=== PATIENT | male | born 1955 | race Caucasian/White ===

== ENCOUNTER 2017-01-21 20:11 | Emergency (ER) | payer MEDICAID ==
[~2017-01-21] VITALS: Ht 172.7 cm; Wt 98.0 kg
[2017-01-21] MEDS ORDERED: SODIUM CHLORIDE 0.9% 1,000 ML IV ONE (22:58)
[2017-01-21 23:13] LABS: BASOPHILS % 0.6 % (0.0-2.0); EOSINOPHILS % 5.8 % (0.0-5.0); HEMATOCRIT. 42.9 % (42.0-52.0); HEMOGLOBIN. 14.9 g/dL (14.0-18.0); LYMPHOCYTES % 37.4 % (20.0-50.0); MEAN CORPUSCULAR HEMOGLOBIN 30.3 pg (28.0-32.0); MEAN CORPUSCULAR VOLUME 87.1 fL (80.0-94.0); MEAN PLATELET VOLUME 8.7 fl (7.4-10.4); MONOCYTES % 5.6 % (2.0-8.0); NEUTROPHILS % 50.6 % (40.0-76.0); PLATELET 270 x1000/uL (130-400); RED BLOOD CELL COUNT 4.92 mill/uL (4.7-6.1); RED CELL DISTRIBUTION WIDTH 13.8 % (11.6-14.6)
[2017-01-21 23:18] LABS: CHLORIDE 106 mEq/L (98-107)
[2017-01-21 23:23] LABS: CARBON DIOXIDE 22 mEq/L (21-32)
[2017-01-21 23:39] LABS: CLARITY URINE CLEAR (CLEAR); COLOR URINE YELLOW (YELLOW); GLUCOSE URINE NEGATIVE (NEGATIVE); KETONES URINE 1+ (NEGATIVE); LEUKOCYTE ESTERASE URINE NEGATIVE (NEGATIVE); NITRITE URINE NEGATIVE (NEGATIVE); OCCULT BLOOD URINE NEGATIVE (NEGATIVE); PH URINE 5.5 (4.5-8.0); PROTEIN URINE NEGATIVE (NEGATIVE); SPECIFIC GRAVITY URINE 1.022 (1.005-1.030); UROBILINOGEN URINE 0.2 E.U./dL (0.2-1.0)
[2017-01-22 00:34] LABS: ETHANOL BLOOD 319 mg/dL
[2017-01-22] MEDS ORDERED: FOLIC ACID 1 MG,THIAMINE 100 MG,MVI-12 10 ML in DEXTROSE 5% WATER 1000 ML IV NR ×4 (01:00)
[2017-01-22 01:10] LABS: *AMPHETAMINES SCREEN URINE NEGATIVE (NEGATIVE); *BARBITURATES SCREEN URINE NEGATIVE (NEGATIVE); *BENZODIAZEPINES SCREEN URINE NEGATIVE (NEGATIVE); *COCAINE SCREEN URINE NEGATIVE (NEGATIVE); CANNABINOID URINE SCREEN NEGATIVE (NEGATIVE); METHADONE URINE SCREEN NEGATIVE (NEGATIVE); OPIATES URINE SCREEN NEGATIVE (NEGATIVE); PHENCYCLIDINE URINE SCREEN NEGATIVE (NEGATIVE)
[2017-01-22 11:53] VITALS: BP 111/72
== END 2017-01-22 11:54 | disposition home or self-care (01) ==
LOC: ER 20:23
DX: R41.82 Altered mental status, unspecified (principal)
CPT/HCPCS: 36415; 70450; 80053; 80305; 80329; 81003; 85025; 96360; 99285; G0482; J3411; J3490; J7070; Z7610; J7030; A4315

== ENCOUNTER 2017-09-08 05:29 | Emergency (ER) | payer MEDICAID ==
[~2017-09-08] VITALS: Ht 167.6 cm; Wt 65.8 kg
[2017-09-08] MEDS ORDERED: FAMOTIDINE 20MG TABLET PO ONE (09:30)
[2017-09-08] MEDS ORDERED: DIPHENHYDRAMINE 50MG CAPSULE PO ONE (09:30)
[2017-09-08 10:00] VITALS: BP 124/79
== END 2017-09-08 10:39 | disposition home or self-care (01) ==
LOC: ER 05:29
DX: H93.11 Tinnitus, right ear (principal); R21 Rash and other nonspecific skin eruption; L29.9 Pruritus, unspecified
CPT/HCPCS: 99283; Q0163